=== PATIENT | male | born 1950 | race Caucasian/White ===

== ENCOUNTER 2021-09-24 19:30 | Emergency (ER) | payer BC, OTHER ==
[~2021-09-24] VITALS: Ht 172.7 cm; Wt 105.2 kg
[~2021-09-24 19:30] MED LIST: AMOX500C2 PO; ASPI-1393 PO; CODE118S2 PO; FLUORESCEIN SODIUM 1 MG OPHTHALMIC STRIP OP ONE; LEVO75TA7 PO; PROPARACAINE (OPTHANINE 0.5%) 15 ML DROPS OP ONE
[2021-09-24 19:40] VITALS: BP_SYST 169
--- NOTE | 2021-09-24 19:44 | NUR ---
Patient to ER bed 6 to gown for evaluation. Side rails up. Report given to Linda HILTON.
--- NOTE | 2021-09-24 19:55 | NUR ---
ER at bedside examining patient.
--- NOTE | 2021-09-24 21:00 | NUR ---
Patient given written and verbal discharge instructions and verbalizes understanding. ER MD discussed with patient the results and treatment provided. Patient in stable condition. ID arm band removed. No Rx of given. Patient educated on pain management and to follow up with PMD. Pain Scale 0/10. Opportunity for questions provided and answered. Medication side effect fact sheet provided.
[2021-09-24 21:04] VITALS: BP_SYST 117
== END 2021-09-24 21:32 | disposition home or self-care (01) ==
LOC: SED 19:30
DX: H11.31 Conjunctival hemorrhage, right eye (principal); I10 Essential (primary) hypertension; E11.9 Type 2 diabetes mellitus without complications; J44.9 Chronic obstructive pulmonary disease, unspecified; K21.9 Gastro-esophageal reflux disease without esophagitis; F03.90 Unspecified dementia, unspecified severity, without behavioral disturbance, psychotic disturbance, mood disturbance, and anxiety; Z95.0 Presence of cardiac pacemaker; Z86.73 Personal history of transient ischemic attack (TIA), and cerebral infarction without residual deficits; Z79.899 Other long term (current) drug therapy; Z91.041 Radiographic dye allergy status
CPT/HCPCS: 99283